=== PATIENT | male | born 1965 | race Caucasian/White ===

== ENCOUNTER 2022-01-16 23:07 | Emergency (ER) | payer OTHER ==
[2022-01-16] MEDS ORDERED: Proparacaine 0.5% Ophth Soln 15 ML Bottle EYELF ONE (23:26)
[2022-01-16] MEDS ORDERED: Lactated Ringers 1,000 ML IV ONE (23:28)
== END 2022-01-17 00:03 | disposition home or self-care (01) ==
LOC: VM.ED 23:07 → MERGE 23:07 → VM.ED 01-17 00:03
DX: H10.212 Acute toxic conjunctivitis, left eye (principal); Z79.899 Other long term (current) drug therapy; Z88.0 Allergy status to penicillin; Z79.82 Long term (current) use of aspirin
CPT/HCPCS: 99282; 99283